=== PATIENT | male | born 1975 | race Caucasian/White ===

== ENCOUNTER 2017-05-04 15:55 | Emergency (ER) | payer BC, OTHER ==
[~2017-05-04] VITALS: Ht 167.6 cm; Wt 79.1 kg
[2017-05-04 16:00] VITALS: TEMP 36.9; Ht 167.6 cm; Wt 79.1 kg
[2017-05-04] MEDS ORDERED: IBUPROFEN 600 MG TAB PO STA (16:10)
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
[2017-05-04] MEDS ORDERED: OXYC1TAB3 PO (17:58)
[2017-05-04 17:59] VITALS: BP 152/101; PULSE 95; O2SAT 97
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
== END 2017-05-04 18:51 | disposition home or self-care (01) ==
LOC: EDBD 15:55 → C.EDC 15:58
DX: S82.141A Displaced bicondylar fracture of right tibia, initial encounter for closed fracture (principal); S72.431A Displaced fracture of medial condyle of right femur, initial encounter for closed fracture; S72.421A Displaced fracture of lateral condyle of right femur, initial encounter for closed fracture; V29.49XA Motorcycle driver injured in collision with other motor vehicles in traffic accident, initial encounter; Y92.488 Other paved roadways as the place of occurrence of the external cause; S60.412A Abrasion of right middle finger, initial encounter; S60.416A Abrasion of right little finger, initial encounter; S80.212A Abrasion, left knee, initial encounter; S80.211A Abrasion, right knee, initial encounter; M79.644 Pain in right finger(s); M79.645 Pain in left finger(s)